=== PATIENT | female | born 1970 | race Caucasian/White ===

== ENCOUNTER 2020-11-11 13:46 | Emergency (ER) | payer MEDICAID ==
[~2020-11-11] VITALS: Ht 170.2 cm; Wt 73.7 kg
[2020-11-11 14:02] VITALS: BP 164/80
[2020-11-11] MEDS ORDERED: CHLO473M3 PO (15:34)
[2020-11-11] MEDS ORDERED: IBUP-1985 PO (15:34)
[2020-11-11] MEDS ORDERED: PENI500T2 PO (15:34)
== END 2020-11-11 15:39 | disposition home or self-care (01) ==
LOC: ER 13:46
DX: K04.7 Periapical abscess without sinus (principal); J45.909 Unspecified asthma, uncomplicated; F12.90 Cannabis use, unspecified, uncomplicated; Z72.89 Other problems related to lifestyle; Z98.51 Tubal ligation status; Z87.440 Personal history of urinary (tract) infections; Z88.1 Allergy status to other antibiotic agents; K02.9 Dental caries, unspecified
CPT/HCPCS: 99283